=== PATIENT | female | born 1970 | race Caucasian/White ===

== ENCOUNTER 2017-09-04 16:42 | Emergency (ER) | payer OTHER ==
[~2017-09-04] VITALS: Ht 165.1 cm; Wt 108.4 kg
--- NOTE | 2017-09-04 18:25 | ED HEADACHE COMPLAINT ---
History of Present Illness General Chief Complaint: Headache Stated Complaint: MCADAMS X 3 DAYS, SENT BY URGENT CARE FOR EVAL Source: patient Exam Limitations: no limitations Vital Signs & Intake/Output Vital Signs & Intake/Output Vital Signs Date Time Temp Pulse Resp B/P B/P Pulse O2 O2 Flow FiO2 Mean Ox Delivery Rate 09/04 1858 98.0 76 18 110/73 96 Room Air 09/04 1650 96.8 93 18 138/89 98 Room Air Room Air Allergies Coded Allergies: No Known Allergies (09/04/17) Reconcile Medications Butalb/Acetaminophen/Caffeine (Yhcazl-Nnedtpbp-Ylvj 50-325-40) 50 MG-325 MG-40 MG TABLET 1-2 TAB PO Q8P PRN HEADACHE Triage Note: PT TO ED WITH C/O SEVERE HEADACHE SINCE SUNDAY AFTERNOON, WENT TO WORK YESTERDAY TOOK TYLENOL LEFT AND WENT HOME, WAS BETTER ONCE HOME YESTERDAY BUT WOKE UP AGAIN THIS MORNING WITH SEVERE HEADACHE. PT DENIES VISUAL DIFFICULTIES DENIES HISTORY OF MIGRAINES. WENT TO URGENT CARE AND SENT IN FOR EVAL. Triage Nurses Notes Reviewed? yes Onset: Abrupt Duration: day(s): (3), constant Timing: recent history Quality/Severity: moderate, severe No Modifying Factors: none HPI: 47-year-old female comes into the emergency room for further evaluation of diffuse headache. Symptoms began going on for the past 3 days. Some associated light sensitivity. Denies any vision loss. Some associated nausea but denies any vomiting. Patient reports that she does not get headaches regularly and has never been diagnosed with migraines. She has taken over the counter medication with some mild relief. Headache became more severe yesterday when she was at school and she had to leave school. She denies any trauma. Denies any other associated symptoms. Had some neck pain initially with a headache but that has since resolved. Past History Travel History Traveled to [place] past 21 day No Medical History Any Pertinent Medical History? 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 No Review of Systems Review of Systems Constitutional: Reports: no symptoms. Eyes: Reports: no symptoms. Ears, Nose, Throat, Mouth: Reports: no symptoms. Respiratory: Reports: no symptoms. Cardiovascular: Reports: no symptoms. Gastrointestinal/Abdominal: Reports: no symptoms. Genitourinary: Reports: no symptoms. Musculoskeletal: Reports: no symptoms. Skin: Reports: no symptoms. Neurological/Psychological: Reports: see HPI. Hematologic/Endocrine: Reports: no symptoms. Endocrine: Reports: no symptoms. Immunologic/Allergic: Reports: no symptoms. All Other Systems: Reviewed and Negative Physical Exam Physical Exam General Appearance: well developed/nourished, no apparent distress, alert, awake Head: atraumatic, normal appearance Eyes: Bilateral: normal appearance, PERRL, EOMI. Ears, Nose, Throat: normal pharynx, normal ENT inspection, hearing grossly normal Neck: normal inspection, supple Respiratory: normal breath sounds, no respiratory distress Cardiovascular: regular rate/rhythm Back: normal inspection Extremities: normal inspection, no edema Psychiatric: awake, alert, oriented x 3 Cranial Nerves: normal hearing, normal speech, PERRL Coordination/Gait: normal finger to nose, normal gait Motor/Sensory: no motor/sensory deficits Skin: intact, normal color Core Measures Sepsis Present: No Sepsis Focused Exam Completed? No Progress Differential Diagnosis: carotid dissection, cav sinus thromb, cluster MCADAMS, encephalitis, IC mass/tumor, intracranial Hem., meningitis, migraine MCADAMS, musculoskeletal pain, sinusitis, SSS thrombosis, subarach. Hem., tension MCADAMS, temporal arteritis, TMJ syndrome, viral cephalgia Plan of Care: Orders Procedure Date/time Status CT HEAD WO IV CONTRAST 09/04 1824 Active Current Medications Sig/Nikolas Start time Last Medication Dose Stop Time Status Admin Acetaminophen 1,000 MG ONCE ONE 09/04 1829 UNVr (Ofirmev) 09/04 184 N/A 1 UNIT (No Carrier) Ketorolac 30 MG ONCE ONE 09/04 1829 UNVr Tromethamine 09/04 1830 (Toradol) Metoclopramide HCl 10 MG ONCE ONE 09/04 1829 UNVr (Reglan) 09/04 1830 Diagnostic Imaging: Viewed by Me: CT Scan. Discussed w/RAD: CT Scan. Radiology Impression: PATIENT: BRADFORD VIVAR PRESENT AGE: 47 PATIENT ACCOUNT NO: [id number] : 70 LOCATION: [facility] ORDERING PHYSICIAN: Cricket MARTINEZ SERVICE DATE: 09/04/17 EXAM TYPE : CAT - CT HEAD WO IV CONTRAST EXAMINATION: CT HEAD WITHOUT CONTRAST CLINICAL INFORMATION: Headache. COMPARISON: None. TECHNIQUE: Contiguous axial images of the brain were obtained without IV contrast. DLP: 6:15 mGy-cm. FINDINGS: There are no pathologic extra-axial fluid collections. The lateral, third, fourth ventricles are nondilated and concordant with the appearance of the sulci. There is no evidence for acute intraparenchymal hemorrhage or infarct. There is neither mass nor mass effect. There is no shift of midline structures. The paranasal sinuses and mastoid air cells are clear. There are no osseous lesions. IMPRESSION: No evidence for acute intracranial injury. DICTATED BY: Eric Valencia MD DATE/TIME DICTATED:09/04/171899 [employer]ER:ARJUN DATE/TIME TRANSCRIBED:09/04/171899 CONFIDENTIAL, DO NOT COPY WITHOUT APPROPRIATE AUTHORIZATION. <Electronically signed in Other Vendor System> SIGNED BY: Eric Valencia MD 09/04/171904 Comments: 09/04/2017 8:08:22 PM Patient is neurologically intact.. Headache significantly improved after IV medications. Follow-up with your PCP. He may need neurology follow-up in outpatient MRI. Understands and agrees with plan of care. Departure Departure Disposition: HOME OR SELF CARE Condition: Stable Clinical Impression Primary Impression: Headache Referrals: Chikis Dobson MD (PCP/Family) Additional Instructions: Take Fioricet as prescribed. Follow-up with a PCP. Return if any concerns worsening symptoms. Please go over all results of today's visit with your primary care doctor. Contact your primary care doctor to let them know you were here in the emergency room. There may be nonspecific findings which may not be related to your visit today here in the emergency room but may require further evaluation and chronic monitoring by your primary care doctor. If you had a laceration today the chance of foreign body always remains. You should follow-up with your primary care doctor for recheck in 3-5 days for a wound check. If you had an x-ray done there is a chance that a fracture could have been missed on initial read and you should follow-up with your primary care doctor for repeat x-rays if symptoms persist. If your blood pressure was elevated here in the emergency room please have rechecked by [facility] primary care doctor within the next 48. If you were prescribed a narcotic here in the emergency room or any type of controlled substances you're not allowed to drive while taking this medication or operate any type of heavy machinery. Narcotics can make you feel lightheaded dizziness nausea and can cause constipation. You may need to bulk picker a stool softener. Thank you for choosing [facility] emergency room. Please return to the emergency room immediately if you have any other concerns worsening of symptoms. Departure Forms: Customer Survey General Discharge Information Prescriptions: Current Visit Scripts Butalb/Acetaminophen/Caffeine (Zjzddf-Snnmqtwb-Zzpp 50-325-40) 1-2 TAB PO Q8P PRN HEADACHE #30 TAB
[2017-09-04 18:58] VITALS: BP 110/73
--- NOTE | 2017-09-04 19:05 | CT SCAN REPORT ---
EXAMINATION: CT HEAD WITHOUT CONTRAST CLINICAL INFORMATION: Headache. COMPARISON: None. TECHNIQUE: Contiguous axial images of the brain were obtained without IV contrast. DLP: 6:15 mGy-cm. FINDINGS: There are no pathologic extra-axial fluid collections. The lateral, third, fourth ventricles are nondilated and concordant with the appearance of the sulci. There is no evidence for acute intraparenchymal hemorrhage or infarct. There is neither mass nor mass effect. There is no shift of midline structures. The paranasal sinuses and mastoid air cells are clear. There are no osseous lesions. IMPRESSION: No evidence for acute intracranial injury.
[2017-09-04] MEDS ORDERED: BUTALB-ACETAMI1 EACH PO (19:35)
== END 2017-09-04 20:11 ==
LOC: ERH 16:42
DX: R51 Headache (principal)
CPT/HCPCS: 96374; 96375; J0131; J1885; J2765